=== PATIENT | female | born 1965 | race Caucasian/White ===

== ENCOUNTER → 2017-05-12 | Outpatient (CLI) | payer BC ==
[~2017-05-12] MED LIST: ASPI-435 PO; ATOR10TA88 PO; CALC-342 PO; CETI10TA10 PO; CITA20TA9 PO; FAMO20TA11 PO; FLUT0.15 NAE; FRCT/ PO; MULT-506 PO; PANT40TA PO; PROP40TA5 PO; ZINC1TAB PO
--- NOTE | 2017-05-12 13:54 | MAMMOGRAPHY REPORT ---
BILATERAL DIGITAL SCREENING MAMMOGRAM TOMOSYNTHESIS WITH CAD: 05/12/2017 CLINICAL HISTORY: Routine screening. Patient has no complaints. TECHNIQUE: Breast tomosynthesis in addition to standard 2D mammography was performed. Current study was also evaluated with a Computer Aided Detection (CAD) system. COMPARISON: Comparison is made to exams dated: 05/10/2016 mammogram, 05/05/2015 mammogram, 04/29/2014 mammogram, 04/24/2013 mammogram, 04/19/2012 mammogram, and 04/13/2011 mammogram - [facility]. BREAST COMPOSITION: There are scattered areas of fibroglandular density in both breasts. FINDINGS: No suspicious masses, calcifications, or areas of architectural distortion are noted in ei ther breast. There has been no significant interval change compared to prior exams. IMPRESSION: ACR BI-RADS CATEGORY 1: NEGATIVE There is no mammographic evidence of malignancy. A 1 year screening mammogram is recommended. The pa tient will receive written notification of the results. Approximately 10% of breast cancers are not detected with mammography. A negative mammographic report should not delay biopsy if a clinically suggestive mass is present. Melissa Lozano M.D. /:05/12/2017 08:32:35 Field Reporter: Liudmila ANDRE([place])(M), [facility] letter sent: Normal 1/2 BI-RADS Code: ACR BI-RADS Category 1: Negative
== END | disposition home or self-care (01) ==
LOC: C.MAMM 07:24
PROVIDERS: ATTEND Family Medicine
DX: Z12.31 Encounter for screening mammogram for malignant neoplasm of breast (principal)

== ENCOUNTER 2017-10-07 07:43 | Emergency (ER) | payer OTHER, BC ==
[~2017-10-07] VITALS: Ht 162.6 cm; Wt 96.8 kg
[~2017-10-07 07:43] MED LIST changes: +ATOR10TA82 PO; -ATOR10TA88 PO
[2017-10-07] MEDS ORDERED: IBUPROFEN 600 MG TAB PO STA (07:53)
[2017-10-07 07:54] VITALS: TEMP 36.9; Ht 162.6 cm; Wt 96.8 kg
[2017-10-07] MEDS ORDERED: OXYCODONE/ACETAMINOPHEN 5-325 TAB PO ONE (08:00)
--- NOTE | 2017-10-07 08:05 | EMERGENCY ROOM VISIT NOTE ---
History Report prepared by Jocelyn: Denisse Chapman Under the Supervision of: Dr. Cj Greer M.D. 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 She reports that she missed the last step at work but denies any LOC. She states she has head pain and she has left knee pain and walking is a worsening factor. She notes this is the worst headache of her life, and she states she gets migraines often. Source of History: patient Onset: captain cannery tender Position: other (global) Quality: other (fall) Modifying Factors (Worsening): movement Associated Symptoms: No LOC Note: Positive knee pain and head pain. Review of Systems See HPI for pertinent positives & negatives. A total of 10 systems reviewed and were otherwise negative. Past Medical & Surgical Surgical Problems: (1) H/O: hysterectomy (2) Hx of tubal ligation (3) Left shoulder arthroscopy Family History FH: cancer FH: heart disease Hypertension Kidney disease Kidney stones Social History Smoking Status: Never Smoker Alcohol Use: none Drug Use: none Marital Status: Housing Status: lives with family Occupation Status: employed Current/Historical Medications Scheduled Aspirin (Aspirin 81), 81 MG PO DAILY Atorvastatin (Lipitor), 10 MG PO QPM Calcium Carbonate-Vitamin D (Calcium 600+D), 1 TAB PO DAILY Cetirizine Hcl (Zyrtec), 10 MG PO HS Citalopram Hydrobromide (Celexa), 20 MG PO HS Famotidine (Pepcid), 20 MG PO BID Fluticasone Propionate (Nasal) (Flonase Allergy Relief), 1 SPRAY SANDRA DAILY Multivitamin (Multivitamin), 1 TAB PO DAILY Ondasetron Odt (Zofran Odt), 4 MG SL Q6H Pantoprazole (Protonix), 40 MG PO DAILY Propranolol Hcl (Propranolol Hcl), 80 MG PO DAILY Scheduled PRN Acetamin/Butalbital/Caffeine (Fioricet), 1 TAB PO Q4 PRN for Migraine Oxycodone/Acetaminophen 5MG/325MG (Percocet 5MG/325MG), 1-2 TAB PO Q4H PRN for Pain Allergies Coded Allergies: No Known Allergies (Verified , 10/07/17) Physical Exam Vital Signs Date Time Temp Pulse Resp B/P (MAP) Pulse Ox O2 Delivery O2 Flow Rate FiO2 10/07/17 10:26 55 16 140/72 95 10/07/17 09:04 56 16 116/75 96 Room Air 10/07/17 07:54 36.9 60 16 149/75 97 Room Air Physical Exam GENERAL: Awake, alert, well-appearing, in no acute distress HENT: Normocephalic, atraumatic. Oropharynx unremarkable. EYES: Normal conjunctiva. Sclera non-icteric. NECK: Supple. No nuchal rigidity. FROM. No JVD. RESPIRATORY: Clear to auscultation. CARDIAC: Regular rate, normal rhythm. Extremities warm and well perfused. Pulses equal. ABDOMEN: Soft, non-distended. No tenderness to palpation. No rebound or guarding. No masses. RECTAL: Deferred. MUSCULOSKELETAL: Chest examination reveals no tenderness. The back is symmetrical on inspection without obvious abnormality. There is no CVA tenderness to palpation. No joint edema. LOWER EXTREMITIES: Calves are equal size bilaterally and non-tender. No edema. No discoloration. NEURO: Normal sensorium. No sensory or motor deficits noted. SKIN: a quarter size abrasion to the left knee. Good ROM to the left rip and the left. No varus or valgus stress. Neurovascularly intact at the left foot. Medical Decision & Procedures ER Provider Diagnostic Interpretation: Radiology results as stated below per my review and radiologist interpretation: PELVIS 1 OR 2 VIEW ROUTINE CLINICAL HISTORY: Pt c/o left hip pain pain COMPARISON: None. DISCUSSION: Changes consistent with a low lumbar laminectomy and fusion at L5-S1. Moderate degenerative change of the sacroiliac joints. The hips are symmetric with no acute process. Mild calcific trochanteric bursitis of the right hip. No acute process left hip. There is no evidence for soft tissue swelling. IMPRESSION: Mild degenerative and postoperative change. No acute process. The above report was generated using voice recognition software. It may contain grammatical, syntax or spelling errors. Electronically signed by: Sandoval Liriano M.D. 10/07/2017 8:54 AM Dictated Date/Time: 10/07/2017 8:54 AM LEFT KNEE 2 VIEWS HISTORY: Pt c/o left knee pain COMPARISON: None. FINDINGS: There is no fracture or dislocation. Soft tissues are unremarkable. No radiopaque foreign bodies. No knee effusion. IMPRESSION: No fractures. Electronically signed by: Silvestre Bangura M.D. 10/07/2017 8:56 AM Dictated Date/Time: 10/07/2017 8:54 AM HEAD WITHOUT CONTRAST (CT) CT DOSE: 537.48 mGy.cm HISTORY: Mental status change Pt c/o Rt sided head pain TECHNIQUE: Multiaxial CT images of the head were performed without the use of intravenous contrast. A dose lowering technique was utilized adhering to the principles of ALARA. Comparison: None. Findings: The paranasal sinuses and mastoid air cells are clear. The calvarium and skull base are intact. The ventricles and sulci are within normal limits. There is no mass, hematoma, midline shift, or acute infarct. Impression: No acute intracranial abnormality. The above report was generated using voice recognition software. It may contain grammatical, syntax or spelling errors. Electronically signed by: Sandoval Liriano M.D. 10/07/2017 8:36 AM Dictated Date/Time: 10/07/2017 8:35 AM L FEMUR 2 VIEWS ROUTINE CLINICAL HISTORY: Pt c/o left hip pain pain COMPARISON: None. DISCUSSION: The bones and joint spaces appear intact. There is no evidence of fracture, dislocation or bony disease. There is no evidence for soft tissue swelling. IMPRESSION: Negative study. The above report was generated using voice recognition software. It may contain grammatical, syntax or spelling errors. Electronically signed by: Sandoval Liriano M.D. 10/07/2017 8:56 AM Dictated Date/Time: 10/07/2017 8:55 AM Medications Administered Medications (Trade) Dose Ordered Sig/Darwin Route Start Time Stop Time Status Last Admin Dose Admin Ibuprofen (Motrin Tab) 600 mg NOW STAT PO 10/07/17 07:53 10/07/17 07:57 DC 10/07/17 08:07 600 MG Oxycodone/ Acetaminophen (Percocet 5-325mg Tab) 2 tab NOW ONCE PO 10/07/17 08:00 10/07/17 08:01 DC 10/07/17 08:08 2 TAB Ondansetron HCl (Zofran Odt) 4 mg ONE STAT PO 10/07/17 08:14 10/07/17 08:15 DC 3/9/18 08:24 4 MG ED Course 0748: Past medical records reviewed. The patient was evaluated in room A4. A complete history and physical examination was performed. 0753: Ibuprofen 600 mg PO 0800: Oxycodone/Acetaminophen 4 mg PO 0814: Zofran Odt 4 mg PO 0917: Upon reexamination the patient is agreeable. I discussed results and treatment plan with the patient. She verbalizes agreement and understanding. The patient is ready for discharge. Medical Decision Differential diagnosis: Etiologies such as fracture, dislocation, intra-abdominal, pneumothorax, intrathoracic , intracranial, neurologic, as well as other traumatic pathologies were entertained. This is a 52-year-old female presents to emergency department with a fall. Patient is complaining of the worst headache of her life along with left hip pain. Based on these findings the patient was sent for x-rays as well as CAT scan of the head. This did not show any acute intracranial process. I stressed the need for follow-up with Worker's Comp. with the patient. In the emergency department the patient was given Zofran along with ibuprofen and Percocet. Repeat examination revealed improvement in the patient's symptoms. Patient will follow up with her orthopedic doctor and was placed on crutches for the hip pain. Patient was in agreement with the treatment plan. Medication Reconcilliation Current Medication List: was personally reviewed by me Blood Pressure Screening Patient's blood pressure: Normal blood pressure Blood pressure disposition: Did not require urgent referral Impression Primary Impression: Fall Additional Impressions: Hip pain Head injury Scribe Attestation The scribe's documentation has been prepared under my direction and personally reviewed by me in its entirety. I confirm that the note above accurately reflects all work, treatment, procedures, and medical decision making performed by me. Departure Information Dispostion Home / Self-Care Prescriptions Ondasetron Odt (ZOFRAN ODT) 4 Mg Tab 4 MG SL Q6H for Nausea, #6 TAB Prov: Cj Greer MD 10/07/17 Oxycodone/Acetaminophen 5MG/325MG (PERCOCET 5MG/325MG) Tab 1-2 TAB PO Q4H Y for Pain, #14 TAB Prov: Cj Greer MD 10/07/17 Referrals Jose Alberto Soriano III, M.D. (PCP) Forms HOME CARE DOCUMENTATION FORM, IMPORTANT VISIT INFORMATION Additional Instructions Need follow up with Dr Lim's office/ worker's comp for continued hip pain You received narcotic or benzodiazepene medication while in the emergency room today. This is an addictive medication that may cause drowziness as well as constipation. Do not drive, operate heavy machinery, or drink alcohol under the influence of this medication. Take 600 mg Ibuprofen every 6 hours Take Percocet for breakthrough pain You have been examined and treated today on an emergency basis only. This is not a substitute for, or an effort to provide, complete comprehensive medical care. It is impossible to recognize and treat all injuries or illnesses in a single emergency department visit. It is therefore important that you follow up closely with Dr Soriano. Call as soon as possible for an appointment. Thank you for your time and consideration. I look forward to speaking with you again soon. Please don't hesitate to call us if you have any questions. Problem Qualifiers Primary Impression: Fall Encounter type: initial encounter Qualified Codes: W19.XXXA - Unspecified fall, initial encounter Additional Impressions: Hip pain Laterality: left Qualified Codes: M25.552 - Pain in left hip Head injury Encounter type: initial encounter Qualified Codes: S09.90XA - Unspecified injury of head, initial encounter
[2017-10-07] MEDS ORDERED: ONDANSETRON 4MG OD TAB PO STA (08:14)
--- NOTE | 2017-10-07 08:38 | DIAGNOSTIC IMAGING REPORT ---
HEAD WITHOUT CONTRAST (CT) CT DOSE: 537.48 mGy.cm HISTORY: Mental status change Pt c/o Rt sided head pain TECHNIQUE: Multiaxial CT images of the head were performed without the use of intravenous contrast. A dose lowering technique was utilized adhering to the principles of ALARA. Comparison: None. Findings: The paranasal sinuses and mastoid air cells are clear. The calvarium and skull base are intact. The ventricles and sulci are within normal limits. There is no mass, hematoma, midline shift, or acute infarct. Impression: No acute intracranial abnormality. The above report was generated using voice recognition software. It may contain grammatical, syntax or spelling errors. Electronically signed by: Sandoval Liriano M.D. 10/07/2017 8:36 AM Dictated Date/Time: 10/07/2017 8:35 AM
--- NOTE | 2017-10-07 08:56 | DIAGNOSTIC IMAGING REPORT ---
PELVIS 1 OR 2 VIEW ROUTINE CLINICAL HISTORY: Pt c/o left hip pain pain COMPARISON: None. DISCUSSION: Changes consistent with a low lumbar laminectomy and fusion at L5-S1. Moderate degenerative change of the sacroiliac joints. The hips are symmetric with no acute process. Mild calcific trochanteric bursitis of the right hip. No acute process left hip. There is no evidence for soft tissue swelling. IMPRESSION: Mild degenerative and postoperative change. No acute process. The above report was generated using voice recognition software. It may contain grammatical, syntax or spelling errors. Electronically signed by: Sandoval Liriano M.D. 10/07/2017 8:54 AM Dictated Date/Time: 10/07/2017 8:54 AM
--- NOTE | 2017-10-07 08:57 | DIAGNOSTIC IMAGING REPORT ---
L FEMUR 2 VIEWS ROUTINE CLINICAL HISTORY: Pt c/o left hip pain pain COMPARISON: None. DISCUSSION: The bones and joint spaces appear intact. There is no evidence of fracture, dislocation or bony disease. There is no evidence for soft tissue swelling. IMPRESSION: Negative study. The above report was generated using voice recognition software. It may contain grammatical, syntax or spelling errors. Electronically signed by: Sandoval Liriano M.D. 10/07/2017 8:56 AM Dictated Date/Time: 10/07/2017 8:55 AM
--- NOTE | 2017-10-07 08:57 | DIAGNOSTIC IMAGING REPORT ---
LEFT KNEE 2 VIEWS HISTORY: Pt c/o left knee pain COMPARISON: None. FINDINGS: There is no fracture or dislocation. Soft tissues are unremarkable. No radiopaque foreign bodies. No knee effusion. IMPRESSION: No fractures. Electronically signed by: Silvestre Bangura M.D. 10/07/2017 8:56 AM Dictated Date/Time: 10/07/2017 8:54 AM
[2017-10-07] MEDS ORDERED: OXYC-57 PO (09:22)
[2017-10-07] MEDS ORDERED: ONDA4TAB10 SL (09:22)
[2017-10-07 10:26] VITALS: BP 140/72; PULSE 55; O2SAT 95
== END 2017-10-07 10:28 | disposition home or self-care (01) ==
LOC: EDBD 07:43 → C.EDA 07:46
DX: M25.552 Pain in left hip (principal); S09.90XA Unspecified injury of head, initial encounter; S80.212A Abrasion, left knee, initial encounter; R51 Headache; W10.9XXA Fall (on) (from) unspecified stairs and steps, initial encounter; Z98.51 Tubal ligation status; Z90.710 Acquired absence of both cervix and uterus; Z98.890 Other specified postprocedural states; Z82.49 Family history of ischemic heart disease and other diseases of the circulatory system; Z84.1 Family history of disorders of kidney and ureter; Z79.82 Long term (current) use of aspirin

== ENCOUNTER → 2018-03-01 | Day surgery (SDC) | payer BC ==
[2018-01-24 13:51] VITALS: Ht 163.2 cm; Wt 8.9 kg
[~2018-03-01] VITALS: Ht 163.2 cm; Wt 8.9 kg
[~2018-03-01] MED LIST changes: +ASTN; +ATROPINE SULFATE 0.1 MG/ML 5ML SYR IV PRN; +BUPIVACAINE 0.5 % 5 MG/1 ML PF 10ML VIAL ONE; +CLINDAMYCIN 600 MG/54 ML D5W IV SCH; +CLINDAMYCIN 600MG IV SCH; +DEXAMETHASONE SOD INJ 4 MG/ML VIAL ONE; +EpHEDrine SULFATE INJ 50 MG/ML AMP IV PRN; +FENTANYL CITRATE INJ 50 MCG/1 ML 2 ML VIAL ONE; +HYDROmorphone INJ 1 MG/ML SYR IV PRN; +LACTATED RINGER'S 1000ML 1,000 ML IV SCH; +LIDOCAINE HCL 2% 2 ML VIAL (20MG/ML) ONE; +MIDAZOLAM HCL 1 MG/ML 2ML VIAL ONE; +MONT1TAB5 PO; +ONDA4TAB65 PO; +ONDANSETRON INJ 2 MG/ML 2 ML VIAL IV PRN; +ONDANSETRON INJ 2 MG/ML 2 ML VIAL ONE; +OXYC-57 PO; +PHENYLEPHRINE 100MCG/ML 5ML SYR IV PRN; +PROPOFOL IV EMULSION 10 MG/ML 20 ML VIAL ONE; +RIZA5TAB10 PO; -ZINC1TAB PO
--- NOTE | 2018-03-01 06:46 | History & Physical Bridge - SC ---
H&P Re-Evaluation Bridge Note: I have examined the patient, reviewed the History & Physical and in the interval since the performance of the History & Physical I have noted the following changes of clinical significance: No changes noted. She presents for right jacob bunionectomy with modified blackman procedure. All RBCA have been explained and she agrees to proceed. Please see my last clinical note for full HPI.
--- NOTE | 2018-03-01 06:48 | Discharge Instructions ---
Discharge Instructions Date of Service Mar 01, 2018. Visit Reason for Visit: Right Hallux Valgus, Pain Discharge Discharge Diagnosis / Problem: right hallux valgus pain Discharge Goals Goal(s): Decrease discomfort, Improve function Activity Recommendations Activity Limitations: per Instructions/Follow-up section Anesthesia . Post Anesthesia Instructions: If you have had General Anesthesia or IV Sedation: * Do not drive today. * Resume driving when surgeon permits. * Do not make important decisions or sign legal documents today. * Call surgeon for: 1. Temperature elevations greater than 101 degrees F. 2. Uncontrollable pain. 3. Excessive bleeding. 4. Persistent nausea and vomiting. 5. Medication intolerance (nausea, vomiting or rash). * For nausea and vomiting use only clear liquids such as: tea, soda, bouillon until nausea subsides, then gradually increase diet as tolerated. * If you have any concerns or questions, call your surgeon's office. If physician is unavailable and it is an emergency, call 911 or go to the nearest emergency room. . Instructions / Follow-Up Instructions / Follow-Up See dispensed literature at preoperative visit Diet Recommendations Recommended Home Diet: no limitations Pending Studies Studies pending at discharge: no Medical Emergencies . Who to Call and When: Medical Emergencies: If at any time you feel your situation is an emergency, please call 911 immediately. . Non-Emergent Contact Non-Emergency issues call your: Surgeon . . "Provider Documentation" section prepared by Jaswinder Denton. .
--- NOTE | 2018-03-01 08:12 | [facility] Post Operative Brief Note ---
Immediate Operative Summary Operative Date Mar 01, 2018. Pre-Operative Diagnosis Right Foot Hallux Valgus, Pain Post-Operative Diagnosis same Procedure(s) Performed Right Foot Bunionectomy, Modified [place]khar Surgeon Dr. Shu Denton Tetryl Dissolver Operator Surgeon(s) 0 Estimated Blood Loss 15cc Findings Consistent with Post-Op Diagnosis Specimens none Anesthesia Type General Complication(s) none Disposition Disposition: Recovery Room / PACU Overlapping Procedure Back up surgeon: used during listed procedure
--- NOTE | 2018-03-01 08:37 | [facility] Operative Report ---
Operative Report Operative Date Mar 01, 2018. Pre-Operative Diagnosis Right Foot Hallux Valgus, Pain Post-Operative Diagnosis same Procedure(s) Performed Right Foot Bunionectomy, Allen Corrigan Surgeon Dr. Shu Denton Thermometer Production Worker Surgeon(s) 0 Estimated Blood Loss 15cc Specimens none Anesthesia Type General Complication(s) none Disposition Recovery Room / PACU Indications Patient is failed outpatient therapy for right hallux valgus deformity. Please see my last clinical note for the full HPI. Description of Procedure Patient was taken to the preoperative area taken to the operating room and placed in the table in normal supine position. After induction of general anesthesia, a local field block was performed of the first ray using 15 cc of half percent Marcaine plain. A right high calf tourniquet was applied to the right lower extremity a timeout was performed identifying the right lower extremity. Right lower extremity was then prepped and draped in the normal sterile fashion. The limb was elevated for examination tourniquet was inflated to 50 mmHg. Attention was directed to the right first metatarsophalangeal joint where a dorsal medial incision medial to the extensor hallucis longus tendon was performed. An skin incision was carried down through subcutaneous tissues with care to retract all vital neurovascular structures capsular tissue was identified. The extensor hallucis longus tendon was also identified medially identifying the first interspace. The deep transverse intermetatarsal ligament was cut with a pair of Metzenbaum scissors after being identified. The abductor hallucis tendon was then freed from the fibular sesamoid utilizing a #15 blade. Lateral capsulotomy was also performed at this time. Attention was then directed medially again more the medial portion incision was made through the joint capsule. Care was taken to The extensor hallucis longus tendon as well as the medial neurovascular structures bundle. Dissection carried down to the level joint revealed medial and of the first metatarsal head. This medial eminence was resected using sagittal saw. A guidewire was then inserted for the to be made in the first metatarsal head for the Praneeth bunionectomy. The guidewire was directed parallel to the second metatarsal in a fashion to make a cut in a plantarflexed surgery and shortening manner. A long dorsal arm Praneeth osteotomy was then performed. Excellent shift laterally was noted with appropriate alignment of the fibular sesamoid under the metatarsal head. After excellent reduction was noted temporary fixation was used in a distal to proximal fashion utilizing a 1 6 K wire. 2 2.5 headless compression screws from [employer] were then thrown from a dorsal distal to proximal plantar direction. Screws were inserted per Ar[employer] technique using countersinking method as to not violate the dorsal cortex of the Praneeth bunionectomy articular surface was not violated as viewed under fluoroscopy. Excellent purchase was obtainedand excellent compression was obtained with the screws and fixation was noted in place. Upon removal of temporary fixation no gap in the osteotomy site and excellent compression was noted across the osteotomy site as seen on fluoroscopy. Residual overhanging ledge of the medial first metatarsal was then resected using a sagittal saw. The site was flushed with copious amounts of normal sterile saline and final intraoperative pictures were obtained. A medial capsulorrhaphy was performed with closure of the medial capsule. Skin and subcutaneous tissues were closed with 4-0 Vicryl as well as 4-0 nylon. Patient tolerated anesthesia and procedure well. Tourniquet was deflated and immediate CFT was noted to the digits. She was transported from the operating room to the PACU with vital signs stable and neurovascular status intact right lower extremity. A dry sterile dressing was applied to the right lower extremity in surgical shoe will be applied in the postoperative holding area. She will be heel weightbearing as tolerated with minimal activity until follow-up in the office. I attest to the content of the Intraoperative Record and any orders documented therein. Any exceptions are noted below.
--- NOTE | 2018-03-01 09:08 | Anesthesia Progress Nt - [facility] ---
Anesthesia Post Op Note Date & Time Mar 01, 2018 at 09:08 Vital Signs Pain Intensity: 0 Vital Signs Past 12 Hours Date Time Temp Pulse Resp B/P (MAP) Pulse Ox O2 Delivery O2 Flow Rate FiO2 03/01/18 09:01 128/75 03/01/18 08:59 55 17 94 03/01/18 08:59 56 17 03/01/18 08:58 65 10 03/01/18 08:58 69 10 94 03/01/18 08:56 133/73 03/01/18 08:53 64 20 93 03/01/18 08:53 65 20 03/01/18 08:51 147/72 03/01/18 08:48 55 18 94 03/01/18 08:48 56 18 03/01/18 08:47 148/75 03/01/18 08:43 62 20 95 03/01/18 08:43 62 20 03/01/18 08:42 66 14 144/79 95 03/01/18 08:42 65 14 03/01/18 08:42 36.3 94 Room Air 03/01/18 08:37 62 18 03/01/18 08:37 62 18 95 03/01/18 08:36 153/83 03/01/18 08:32 60 22 100 03/01/18 08:32 60 22 03/01/18 08:31 61 19 03/01/18 08:31 61 19 141/87 100 03/01/18 08:26 63 11 136/78 100 03/01/18 08:26 64 11 03/01/18 08:25 65 10 03/01/18 08:25 65 10 100 03/01/18 08:21 141/79 03/01/18 08:20 56 10 100 03/01/18 08:20 57 10 03/01/18 08:16 151/80 03/01/18 08:15 36.3 56 12 151/80 99 Mask 10 03/01/18 06:42 36.7 65 22 142/86 (104) 97 Room Air Notes Mental Status: alert / awake / arousable, participated in evaluation Pt Amnestic to Procedure: Yes Nausea / Vomiting: adequately controlled Pain: adequately controlled Airway Patency, RR, SpO2: stable & adequate BP & HR: stable & adequate Hydration State: stable & adequate Anesthetic Complications: no major complications apparent
[2018-03-01 09:16] VITALS: TEMP 36.1
[2018-03-01 09:41] VITALS: BP 125/78; PULSE 62; O2SAT 96
--- NOTE | 2018-03-02 07:10 | DIAGNOSTIC IMAGING REPORT ---
R SURGICENTER FOOT, 2 VIEWS CLINICAL HISTORY: RT FOOT COMPARISON STUDY: None. FLUOROSCOPY TIME: 22 seconds. FINDINGS: 2 fluoroscopic spot images of the forefoot. There is an osteotomy and screw fixation within the neck of the first metatarsal. The hardware appears intact. The alignment is near-anatomic. IMPRESSION: Fluoroscopy provided for osteotomy of the first metatarsal. Electronically signed by: Silvestre Bangura M.D. 03/02/2018 7:09 AM Dictated Date/Time: 03/02/2018 7:09 AM
== END | disposition home or self-care (01) ==
LOC: X.SURG 06:11
PROVIDERS: ATTEND Podiatrist
DX: M20.11 Hallux valgus (acquired), right foot (principal); E78.5 Hyperlipidemia, unspecified; K21.9 Gastro-esophageal reflux disease without esophagitis; E66.9 Obesity, unspecified